=== PATIENT | male | born 1985 | race Caucasian/White ===

== ENCOUNTER 2016-05-10 19:05 | Emergency (ER) | payer MEDICAID ==
[2016-05-10 19:24] VITALS: BP 155/102; PULSE 77; RESP 15; TEMP 98.1; O2SAT 95
--- NOTE | 2016-05-10 19:55 | UCPHY ---
H & P Patient Type: New Chief Complaint Nursing Narrative: cough, eyes watery, runny/stuffy nose x 4 days Time Seen by Provider: 05/10/16 19:42 HPI/ROS: Chief complaint: Cough, body aches, congestion HPI: 31-year-old male presenting with 3-4 days of general malaise, cough, body aches, congestion and runny nose. Cough is productive of a yellow sputum. No subjective fevers or chills. No shortness of breath. No nausea or vomiting. Mild headache. Mild sore throat. No ear pain. No chest pain or shortness of breath. No abdominal pain. Some nausea. No vomiting. No diarrhea. She has been taking ibuprofen and acetaminophen with some relief. No other medications. ROS: 10 point Review of Systems is negative except as noted in the HPI. Physical exam: Gen: Awake, Alert, No Distress HEENT: Ears: TMs appeared normal Nose: no rhinorrhea Eyes: PERRLA, EOMI Mouth: Moist mucosa no pharyngeal exudate Neck: Supple, no JVD Chest: nontender, lungs clear to auscultation Heart: S1, S2 normal, no murmur Abd: Soft, non-tender, no guarding Back: no CVA tenderness, no midline tenderness Ext: no edema, non-tender Skin: no rash Neuro: CN II-XII intact, Sensation grossly intact, Strength 5/5 in bilateral upper and lower extremities - Medical/Surgical History Other PMH: denies - Family History Significant Family History: No pertinent family hx - Social History Smoking Status: Current every day smoker Constitutional: Initial Vital Signs Temperature (C) 36.7 C 05/10/16 19:22 Heart Rate 77 05/10/16 19:22 Respiratory Rate 15 05/10/16 19:22 Blood Pressure 155/102 H 05/10/16 19:22 O2 Sat (%) 95 05/10/16 19:22 O2 Delivery Mode Room Air Allergies/Adverse Reactions: No Known Allergies Allergy (Unverified 05/10/16 19:22) Home Medications: Medication Instructions Recorded NK [No Known Home Meds] 05/10/16 Departure - Departure Disposition: Home, Routine, Self-Care Clinical Impression: Viral upper respiratory tract infection Condition: Good Instructions: Viral Syndrome (ED) Additional Instructions: May take ibuprofen alternating with acetaminophen every 3-4 hours as needed for fevers, aches and pains. Follow up with her primary care physician in 3-4 days if symptoms are not improving. - PQRS PQRS Measurement: NA
== END 2016-05-10 20:19 | disposition home or self-care (01) ==
LOC: CED 19:05
DX: J06.9 Acute upper respiratory infection, unspecified (principal)
CPT/HCPCS: G0463-PO